=== PATIENT | female | born 1985 | race Two or more races ===

== ENCOUNTER 2020-09-18 13:41 | Emergency (ER) | payer OTHER ==
[~2020-09-18] VITALS: Ht 165.1 cm; Wt 122.5 kg
[2020-09-18] MEDS ORDERED: IV NS 0.9% 1,000 ML BAG IV ONE (15:00)
[2020-09-18] MEDS ORDERED: ONDANSETRON HCL/PF 4 MG/2 ML VIAL IVP ONE (15:00)
[2020-09-18] MEDS ORDERED: HYDROCODONE/APAP 5/325MG TABLET PO ONE ×2 (15:00→17:30)
[2020-09-18] MEDS ORDERED: ONDANSETRON HCL/PF 4 MG/2 ML VIAL ONE (15:04)
[2020-09-18] MEDS ORDERED: HYDROCODONE/APAP 5/325MG TABLET ONE ×2 (15:04→17:45)
[2020-09-18 15:07] LABS: BASOPHILS # (AUTO) 0.1 /CMM (0.0-0.2); BASOPHILS % (AUTO) 0.9 % (0.0-2.0); EOSINOPHILS % (AUTO) 3.5 % (0.0-6.0); HEMATOCRIT 37 % (33-45); HEMOGLOBIN 11.4 g/dL (11.5-14.8); LYMPHOCYTES # (AUTO) 3.5 /CMM (0.8-4.8); LYMPHOCYTES % (AUTO) 35.8 % (20.0-44.0); MEAN CORPUSCULAR HGB CONC 31 g/dl (31.0-36.0); MEAN CORPUSCULAR VOLUME 64 fL (82-100); MONOCYTES # (AUTO) 0.5 /CMM (0.1-1.30); MONOCYTES % (AUTO) 5.5 % (2.0-12.0); NEUTROPHILS # (AUTO) 5.3 /CMM (1.8-8.9); NEUTROPHILS % (AUTO) 54.3 % (43.0-81.0); PLATELET COUNT (AUTO) 284 /CMM (150-450); RED BLOOD CELL COUNT(AUTO) 5.82 MIL/uL (4.0-5.2); WHITE BLOOD COUNT (AUTO) 9.8 K/uL (4.3-11.0)
[2020-09-18 15:08] LABS: BILIRUBIN,URINE NEGATIVE (NEGATIVE); COLOR,URINE YELLOW (YELLOW); LEUKOCYTE ESTERASE ,URINE TRACE (NEGATIVE); NITRITE, URINE NEGATIVE (NEGATIVE); PROTEIN,URINE NEGATIVE (NEGATIVE); UGLUCOSE >=1000 mg/dL (NEGATIVE); UROBILINOGEN,URINE 0.2 EU/dL (0.2)
--- NOTE | 2020-09-18 15:11 | NUR ---
[id number] C/O DIZZINESS, NAUSEA, ABDOMINAL CRAMPING SINCE LAST NIGHT BG [employer]IAN. PT AAOX4, VSS. RR EVEN & UNLABORED. DENIES CP, SOB, WEAKNESS, NUMBNESS/TINGLING SENSATION AT THIS TIME. PT SEEN & EVAL'D BY DR. PRICE. MEDICATED ORDERED, PT JANESSA WELL. WILL CONT TO MONITOR.
[2020-09-18 15:15] LABS: CALCIUM, SERUM 8.8 mg/dL (8.5-10.1); CREATININE 0.8 mg/dL (0.6-1.3); POTASSIUM 4.1 mmol/L (3.5-5.1)
[2020-09-18 15:21] LABS: ALBUMIN 3.4 g/dL (3.4-5.0); BILIRUBIN,DIRECT 0.2 mg/dL (0.0-0.2); BILIRUBIN,TOTAL 0.8 mg/dL (0.2-1.0); TOTAL PROTEIN, SERUM 7.5 g/dL (6.4-8.2)
[2020-09-18 15:22] LABS: BACTERIA,URINE RARE /HPF (None Seen); URINE AMORPHOUS PHOSPHATES Many /HPF (None Seen)
[2020-09-18 15:23] LABS: SQUAMOUS EPITHELIAL CELL,UR 0-3 /HPF (None Seen)
[2020-09-18] MEDS ORDERED: INSULIN REGULAR, HUMAN 100 UNIT/ML 10 ML VIAL SQ ONE (15:30)
[2020-09-18] MEDS ORDERED: IV NS 0.9% 250 ML IV ONE (15:42)
[2020-09-18] MEDS ORDERED: CT SWABBABLE VALVE TRANS SET 1 EA INFUS.SET MC ONE (15:42)
[2020-09-18] MEDS ORDERED: IOHEXOL-300 100 ML VIAL IV ONE (15:42)
[2020-09-18 16:01] LABS: BAND % (MANUAL) 2 % (0.0-5.0); EOSINOPHILS % (MANUAL) 4 % (0-4); LYMPHOCYTES % (MANUAL) 40 % (16-48); MONOCYTES % (MANUAL) 4 % (0-11.0); NEUTROPHILS % (MANUAL) 50 (42-76)
[2020-09-18] MEDS ORDERED: INSULIN REGULAR, HUMAN 100 UNIT/ML 10 ML VIAL ONE (16:02)
--- NOTE | 2020-09-18 18:30 | NUR ---
Patient discharged to home in stable condition. Written and verbal after care instructions given. Patient verbalizes understanding of instruction. IV removed. Catheter intact and site benign. Pressure and 4x4 applied to site. No bleeding noted.
[2020-09-18 18:46] VITALS: BP 119/76
== END 2020-09-18 18:47 | disposition home or self-care (01) ==
LOC: ER 13:43
DX: E11.65 Type 2 diabetes mellitus with hyperglycemia (principal); K42.9 Umbilical hernia without obstruction or gangrene; I10 Essential (primary) hypertension; J45.909 Unspecified asthma, uncomplicated
CPT/HCPCS: 36415; 74177; 80048; 80076; 81001; 83690; 84703; 85007; 85025; 87086; 96361; 96372; 96374; 99285; J1815; J2405; J7030; J7050; Q9967

== ENCOUNTER 2020-10-07 00:21 | Emergency (ER) | payer MEDICAID, OTHER ==
[~2020-10-07] VITALS: Ht 165.1 cm; Wt 122.5 kg
--- NOTE | 2020-10-07 00:30 | NUR ---
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 DENIED SOB. PT DESCRIBES THE PAIN PRESSURE, NON RADIATING AND RATING 8/10. PT WAS PLACED IN BED 12 ER, ON MONITOR, VSS. WILL CONT TO MONITOR
[2020-10-07] MEDS ORDERED: ONDANSETRON HCL/PF 4 MG/2 ML VIAL ONE ×2 (00:36→02:56)
--- NOTE | 2020-10-07 00:54 | NUR ---
RAD AT BED SIDE
[2020-10-07] MEDS ORDERED: HYDROCODONE/APAP 10/325MG TABLET ONE (00:58)
[2020-10-07 00:59] LABS: BASOPHILS # (AUTO) 0.1 K/uL (0.0-0.2); HEMOGLOBIN 11.6 g/dL (11.5-14.8); MONOCYTES # (AUTO) 0.7 K/uL (0.1-1.30)
[2020-10-07] MEDS ORDERED: ONDANSETRON HCL/PF 4 MG/2 ML VIAL IVP ONE (01:00)
[2020-10-07] MEDS ORDERED: IV NS 0.9% 1,000 ML BAG IV ONE (01:00)
[2020-10-07] MEDS ORDERED: HYDROCODONE/APAP 10/325MG TABLET PO ONE (01:00)
[2020-10-07 01:01] LABS: CALCIUM, SERUM 8.7 mg/dL (8.5-10.1); CARBON DIOXIDE 25 mmol/L (21-32); CHLORIDE 100 mmol/L (98-107); CREATININE 0.6 mg/dL (0.6-1.3); GLUCOSE 267 mg/dL (74-106); POTASSIUM 3.7 mmol/L (3.5-5.1); SODIUM SERUM 134 mmol/L (136-145); UREA NITROGEN, BLOOD 18 mg/dL (7-18)
[2020-10-07 01:03] LABS: BASOPHILS % (AUTO) 0.7 % (0.0-2.0); EOSINOPHILS % (AUTO) 2.5 % (0.0-6.0); HEMATOCRIT 37 % (33-45); LYMPHOCYTES # (AUTO) 4.3 K/uL (0.8-4.8); LYMPHOCYTES % (AUTO) 32.6 % (20.0-44.0); MEAN CORPUSCULAR HGB CONC 31 g/dl (31.0-36.0); MEAN CORPUSCULAR VOLUME 61 fL (82-100); MONOCYTES % (AUTO) 4.9 % (2.0-12.0); NEUTROPHILS # (AUTO) 7.9 K/uL (1.8-8.9); NEUTROPHILS % (AUTO) 59.3 % (43.0-81.0); PLATELET COUNT (AUTO) 284 K/uL (150-450); RED BLOOD CELL COUNT(AUTO) 6.08 MIL/uL (4.0-5.2); WHITE BLOOD COUNT (AUTO) 13.3 K/uL (4.3-11.0)
[2020-10-07 01:10] LABS: LIPASE 114 U/L (73-393)
[2020-10-07 01:13] LABS: ALANINE AMINOTRANSFERASE 58 U/L (12-78); ALBUMIN 3.7 g/dL (3.4-5.0); ALKALINE PHOSPHATASE 100 U/L (46-116); ASPARTATE AMINOTRANSFERASE 26 U/L (15-37); BILIRUBIN,DIRECT 0.2 mg/dL (0.0-0.2); BILIRUBIN,TOTAL 0.7 mg/dL (0.2-1.0); TOTAL PROTEIN, SERUM 8.1 g/dL (6.4-8.2)
[2020-10-07] MEDS ORDERED: HYDROMORPHONE HCL 2 MG TABLET ONE (02:57)
[2020-10-07] MEDS ORDERED: HYDROMORPHONE HCL 2 MG TABLET PO PRN (03:00)
[2020-10-07] MEDS ORDERED: ONDANSETRON HCL/PF 4 MG/2 ML VIAL IV ONE (03:00)
[2020-10-07] MEDS ORDERED: TRAM50TA2 PO (04:05)
--- NOTE | 2020-10-07 04:22 | NUR ---
[facility] [phone]
[2020-10-07 04:55] VITALS: BP 116/54
--- NOTE | 2020-10-07 05:40 | NUR ---
Patient discharged to home in stable condition. Written and verbal after care instructions given. Patient verbalizes understanding of instruction.
== END 2020-10-07 05:40 | disposition home or self-care (01) ==
LOC: ER 00:22
DX: R07.9 Chest pain, unspecified (principal); E66.01 Morbid (severe) obesity due to excess calories; Z68.41 Body mass index [BMI] 40.0-44.9, adult; Z20.822 Contact with and (suspected) exposure to COVID-19; G89.29 Other chronic pain; M54.9 Dorsalgia, unspecified; E11.65 Type 2 diabetes mellitus with hyperglycemia; Z59.0 Homelessness; J45.909 Unspecified asthma, uncomplicated; K44.9 Diaphragmatic hernia without obstruction or gangrene; R94.31 Abnormal electrocardiogram [ECG] [EKG]
CPT/HCPCS: 36415; 71045; 80048; 80076; 83690; 83880; 84484 ×2; 84702; 85025; 87426; 93005; 96374; 96376; 99285; C9803; J2405 ×2; J7030